=== PATIENT | male | born 1990 | race Caucasian/White ===

== ENCOUNTER 2022-08-19 19:54 | Emergency (ER) | payer BC ==
[2022-08-19] MEDS ORDERED: Naproxen 500 MG Tab PO ONE (21:13)
== END 2022-08-19 21:40 | disposition home or self-care (01) ==
LOC: JD.ED 19:54
DX: S86.911A Strain of unspecified muscle(s) and tendon(s) at lower leg level, right leg, initial encounter (principal); W22.8XXA Striking against or struck by other objects, initial encounter
CPT/HCPCS: 73590; 99283; A9270